=== PATIENT | male | born 1970 | race African-American/Black ===

== ENCOUNTER 2016-05-22 08:10 | Emergency (ER) | payer MEDICAID, OTHER ==
[~2016-05-22] VITALS: Wt 102.3 kg
[2016-05-22] MEDS ORDERED: KETOROLAC 30 MG INJ IV STA (08:42)
[2016-05-22 09:00] LABS: URINE BLOOD (Dip) POC Negative (NEGATIVE)
[2016-05-22] MEDS ORDERED: CYCLOBENZAPRINE 10 MG TAB PO ONE (09:00)
--- NOTE | 2016-05-22 09:40 | RADRPT ---
PROCEDURE: Chest x-ray CLINICAL INDICATION: Chest pain TECHNIQUE: Chest single view COMPARISON: None FINDINGS: The heart is normal in size. The pulmonary vessels are normal in caliber. The lungs are clear. Th e costophrenic angles are sharp. The visualized bony thorax is unremarkable. IMPRESSION: No acute cardiopulmonary disease. No evidence of pneumothorax RPTAT: HH .Marco Antonio Gil MD, Date Time Electronically viewed and signed by .Marco Antonio Gil MD, on 05/22/2016 09:39 .W/
[2016-05-22 09:47] LABS: BASOPHILS % 0.5 % (0.0-2.0); EOSINOPHILS # 0.1 10^3/ul (0.0-0.5); EOSINOPHILS % 0.8 % (0.0-7.0); HEMATOCRIT 39.9 % (42.0-52.0); HEMOGLOBIN 13.6 g/dl (14.0-18.0); LYMPHOCYTES # 2.1 10^3/ul (0.8-2.9); LYMPHOCYTES % 25.2 % (15.0-51.0); MEAN CORPUSCULAR HEMOGLOBIN 30.8 pg (29.0-33.0); MEAN CORPUSCULAR HGB CONC 34.1 g/dl (32.0-37.0); MEAN CORPUSCULAR VOLUME 90.4 fl (82.0-101.0); MEAN PLATELET VOLUME 9.3 fl (7.4-10.4); MONOCYTE # 0.8 10^3/ul (0.3-0.9); MONOCYTES % 10.4 % (0.0-11.0); NEUTROPHIL # 5.2 10^3/ul (1.6-7.5); NEUTROPHILS % 63.1 % (39.0-77.0); PLATELET COUNT 234 10^3/UL (140-440); RED BLOOD COUNT 4.41 10^6/ul (4.70-6.10); RED CELL DISTRIBUTION WIDTH 12.2 % (11.5-14.5); UNCORRECTED WBC 8.2 10^3/ul (4.8-10.8); WHITE BLOOD COUNT 8.2 10^3/ul (4.8-10.8)
[2016-05-22 09:48] LABS: CONDITION 1
[2016-05-22 09:55] LABS: CHLORIDE 109 mmol/L (97-110); POTASSIUM 4.5 mmol/L (3.5-5.1); SODIUM 144 mmol/L (135-144)
[2016-05-22 09:58] LABS: ANION GAP 16 (8-16); BLOOD UREA NITROGEN 10 mg/dl (7-20); CALCIUM 9.2 mg/dl (8.4-10.2); CARBON DIOXIDE 24 mmol/L (21-31); GLUCOSE 115 mg/dl (70-220)
[2016-05-22 10:04] LABS: INR 1.05; PROTIME 13.7 Sec (12.2-14.2); PT RATIO 1.1
[2016-05-22 10:05] LABS: PARTIAL THROMBOPLASTIN TIME 30.4 Sec (25.0-35.0)
[2016-05-22 10:12] LABS: TROPONIN-I < 0.012 ng/ml (0.00-0.12)
[2016-05-22] MEDS ORDERED: IBUP-1542 PO (10:33)
[2016-05-22] MEDS ORDERED: CYCL-319 PO (10:33)
[2016-05-22] MEDS ORDERED: HYDR-906 PO (10:33)
--- NOTE | 2016-05-25 12:40 | ERD ---
ER Documentation Chief Complaint Date/Time DATE: 05/24/16 TIME: 11:58 Chief Complaint BACK PAIN, LEFT SHOULDER BLADE PAIN, ONSET 1 YEAR, NO INJURY HPI This is a 45 year old male presenting to ER for left scapular pain x 3 days.. Patient states he has severe 10/10 pain localized to left scapula that worsens with movements and deep inhalations. No recent injury or trauma to area. No difficulty breathing or shortness of breath. No chest pain, palpitations, cough , wheezing, sore throat or difficulty swallowing. No weakness or fatigue. Patient has not tried any medications at home for pain. No lower back or abdominal pain. ROS All systems reviewed and are negative except as per history of present illness. Medications Home Meds Active Scripts Cyclobenzaprine Hcl* (Cyclobenzaprine Hcl*) 10 Mg Tablet, 10 MG PO TID, #15 TAB Prov:EVERT CRUZ NP 05/22/16 Hydrocodone/Acetaminophen ([place] 5-325 Tablet) 1 Each Tablet, 1 TAB PO Q6H Y for PAIN, #7 TAB Prov:EVERT CRUZ NP 05/22/16 Ibuprofen* (Motrin*) 600 Mg Tab, 600 MG PO Q6, #15 TAB Prov:EVERT CRUZ NP 05/22/16 Allergies Allergies: Coded Allergies: No Known Allergy (Unverified , 05/22/16) PMhx/Soc History of Surgery: No Anesthesia Reaction: No Hx Neurological Disorder: No Hx Respiratory Disorders: No Hx Cardiac Disorders: No Hx Psychiatric Problems: No Hx Miscellaneous Medical Probl: Yes (dm) Hx Alcohol Use: No Hx Substance Use: No Hx Tobacco Use: No Physical Exam Vitals Vital Signs Date Time Temp Pulse Resp B/P Pulse Ox O2 Delivery O2 Flow Rate FiO2 05/22/16 08:11 97.6 89 17 168/89 98 Physical Exam Const: alert, non-toxic appearing Head: Atraumatic Eyes: Normal Conjunctiva ENT: Normal External Ears, Nose and Mouth. Neck: Full range of motion..~ No meningismus. Resp: Clear to auscultation bilaterally Cardio: Regular rate and rhythm, no murmurs Abd: Soft, non tender, non distended. Normal bowel sounds Skin: No petechiae or rashes Back: No midline or flank tenderness Ext: full extension and flexion to bilateral upper extremities Neur: Awake and alert Psych: Normal Mood and Affect Result Diagram: 05/22/16 0908 05/22/16 0908 Results 24 hrs Laboratory Tests Test 05/22/16 09:02 05/22/16 09:08 Bedside Urine Blood Negative Bedside Urine Glucose (UA) Negative Bedside Urine Ketones (LAB) Negative Bedside Urine Leukocyte Esterase (L Negative Bedside Urine Nitrite (LAB) Negative Bedside Urine Protein (LAB) Negative Bedside Urine pH (LAB) 6.5 Activated Partial Thromboplast Time 30.4Sec Anion Gap 16 Basophils # 0.010^3/ul Basophils % 0.5% Blood Urea Nitrogen 10mg/dl Calcium Level 9.2mg/dl Carbon Dioxide Level 24mmol/L Chloride Level 109mmol/L Creatinine 0.90mg/dl Eosinophils # 0.110^3/ul Eosinophils % 0.8% Glucose Level 115mg/dl Hematocrit 39.9% Hemoglobin 13.6g/dl INR International Normalized Ratio 1.05 Lymphocytes # 2.110^3/ul Lymphocytes % 25.2% Mean Corpuscular Hemoglobin 30.8pg Mean Corpuscular Hemoglobin Concent 34.1g/dl Mean Corpuscular Volume 90.4fl Mean Platelet Volume 9.3fl Monocytes # 0.810^3/ul Monocytes % 10.4% Neutrophils # 5.210^3/ul Neutrophils % 63.1% Nucleated Red Blood Cells # 0.010^3/ul Nucleated Red Blood Cells % 0.0/100WBC Platelet Count 37856^3/UL Potassium Level 4.5mmol/L Prothrombin Time 13.7Sec Prothrombin Time Ratio 1.1 Red Blood Count 4.4110^6/ul Red Cell Distribution Width 12.2% Sodium Level 144mmol/L Troponin I < 0.012ng/ml White Blood Count 8.210^3/ul Current Medications Medications (Trade) Dose Ordered Sig/Carroll Route PRN Reason Start Time Stop Time Status Last Admin Dose Admin Ketorolac Tromethamine (Toradol) 30 mg ONCE STAT IV 05/22/16 08:42 05/22/16 08:45 DC 05/22/16 09:21 Cyclobenzaprine HCl (Flexeril) 10 mg ONCE ONCE PO 05/22/16 09:00 05/22/16 09:01 DC 05/22/16 09:21 Procedures/MDM ED course Laboratory CBC no significant anemia or infection BMP no significant electrolyte imbalance Troponin <0.012 PT 13.7 PTT 30.4 INR 1.05 urine dip negative Imaging Patient: JAGRUTI HARRIS : 1970 Age: 45 Sex: M MR #: [id number] [facility] #: [id number] DOS: 05/22/16 0842 Ordering MD: EVERT CRUZ NP Location: E Room/Bed: PROCEDURE: Chest x-ray CLINICAL INDICATION: Chest pain TECHNIQUE: Chest single view COMPARISON: None FINDINGS: The heart is normal in size. The pulmonary vessels are normal in caliber. The lungs are clear. The costophrenic angles are sharp. The visualized bony thorax is unremarkable. IMPRESSION: No acute cardiopulmonary disease. No evidence of pneumothorax EKG Rhythm: normal sinus rhythm with heart rate 60 bpm as interpreted by myself and Dr. Godl. No ST elevation or prolonged QT interval. MDM: This is a 45 year old male presenting to ER for left scapular pain x 3 days. Pain worsens with movement and deep inhalation. Patient in no acute distress upon initial assessment. Vital signs are stable. Patent given Toradol and Flexeril and patient now states pain has reduced from 10/10 to 4/10 and is able to take deep inhalations and more active range of motion. Labs are unremarkable and detailed above. Chest x-ray as reviewed by radiologist as no acute cardiopulmonary disease. No evidence of pneumothorax. Patient states he is feeling much better. Talking in full sentences. No signs or symptoms of respiratory distress. EKG shows NSR with HR 60bpm with no ST elevation or prolonged QT interval. Low suspicion for pneumothorax, pulmonary embolism, acute WI, NSTEMI or lethal arrhythmia. Patient is appropriate for outpatient management and will be discharged with prescription for ibuprofen, Flexeril and [place]. Instructed to follow up with PCP in the next 24-48 hrs for reassessment and additional management. Return to ED for chest pain, shortness of breath, difficulty breathing, abdominal pain, wheezing, high fever or any new or worsening symptoms. Patient verbalizes understanding. All questions answered at discharge. Departure Diagnosis: Primary Impression: Pain of left scapula Condition: Stable Patient Instructions: Back Pain (Acute Or Chronic), Shoulder Pain (Uncertain Cause) Referrals: COMMUNITY CLINICS YOU HAVE RECEIVED A MEDICAL SCREENING EXAM AND THE RESULTS INDICATE THAT YOU DO NOT HAVE A CONDITION THAT REQUIRES URGENT TREATMENT IN THE EMERGENCY DEPARTMENT. FURTHER EVALUATION AND TREATMENT OF YOUR CONDITION CAN WAIT UNTIL YOU ARE SEEN IN YOUR DOCTORS OFFICE WITHIN THE NEXT 1-2 DAYS. IT IS YOUR RESPONSIBILITY TO MAKE AN APPOINTMENT FOR FOLOW-UP CARE. IF YOU HAVE A PRIMARY DOCTOR --you should call your primary doctor and schedule an appointment IF YOU DO NOT HAVE A PRIMARY DOCTOR YOU CAN CALL OUR PHYSICIAN REFERRAL HOTLINE AT IF YOU CAN NOT AFFORD TO SEE A PHYSICIAN YOU CAN CHOSE FROM THE FOLLOWING [facility] [address] [facility] [address] [facility] [address] [facility] [address] [facility] [address] [facility]. [facility] [address] [facility]. [facility] YOU HAVE RECEIVED A MEDICAL SCREENING EXAM AND THE RESULTS INDICATE THAT YOU DO NOT HAVE A CONDITION THAT REQUIRES URGENT TREATMENT IN THE EMERGENCY DEPARTMENT. FURTHER EVALUATION AND TREATMENT OF YOUR CONDITION CAN WAIT UNTIL YOU ARE SEEN IN YOUR DOCTORS OFFICE WITHIN THE NEXT 1-2 DAYS. IT IS YOUR RESPONSIBILITY TO MAKE AN APPOINTMENT FOR FOLOW-UP CARE. IF YOU HAVE A PRIMARY DOCTOR --you should call your primary doctor and schedule and appointment IF YOU DO NOT HAVE A PRIMARY DOCTOR YOU CAN CALL OUR PHYSICIAN REFERRAL HOTLINE AT . IF YOU CAN NOT AFFORD TO SEE A PHYSICIAN YOU CAN CHOSE FROM THE FOLLOWING [facility], [facility]: [facility] [address] [place] [address] [facility] [address] [place] [address] [facility] + [facility] [address] [place] [address] Additional Instructions: Call your primary care doctor TOMORROW for an appointment during the next 2-3 days.See the doctor sooner or return here if your condition worsens before your appointment time. Return to ED for any high fever, chest pain, difficulty breathing, shortness breath, wheezing, vomiting, diarrhea, abdominal pain or any new or worsening symptoms. EVERT CRUZ NP May 24, 2016 12:11
== END 2016-05-22 11:02 | disposition home or self-care (01) ==
LOC: FTE 08:10
DX: M25.512 Pain in left shoulder (principal); E11.9 Type 2 diabetes mellitus without complications; R07.9 Chest pain, unspecified
CPT/HCPCS: 36415; 71010; 80048; 81003; 84484; 85025; 85610; 85730; 93005; 96374; J1885; Z7502; Z7610